=== PATIENT | female | born 1930 | race Caucasian/White ===

== ENCOUNTER → 2017-05-22 | Outpatient (CLI) | payer MEDICARE, OTHER ==
--- NOTE | 2017-05-22 15:38 | RAD ---
CERVICAL SPINE 5V AP, bilateral oblique, lateral, odontoid Clinical Indication: RIGHT SIDE NECK PAIN Comparison: None. Findings: The cervical spine is visualized to level of C7. The normal cervical lordosis is maintained. No listhesis. The neural foramen are grossly patent. Vertebral body heights are maintained. No evidence of acute fracture. Moderate multilevel degenerative changes of the visualized spine. Atherosclerotic and tortuous thoracic aorta. IMPRESSION: 1. No acute fracture or malalignment. 2. Moderate multilevel degenerative changes of the visualized spine.
== END | disposition home or self-care (01) ==
LOC: DXRAD 12:51
PROVIDERS: ATTEND Family Medicine
DX: M47.892 Other spondylosis, cervical region (principal); I70.0 Atherosclerosis of aorta
CPT/HCPCS: 72050

== ENCOUNTER 2017-09-11 08:10 | Emergency (ER) | payer MEDICARE, OTHER ==
[~2017-09-11] VITALS: Ht 154.9 cm; Wt 53.5 kg
--- NOTE | 2017-09-11 08:37 | PHYS DOC ---
Past History Past Medical History: Hypertension, Hypothyroid Additional Past Medical Histor: interstitial cystitis Smoking: Non-smoker Alcohol Use: None Drug Use: None Adult General Chief Complaint Chief Complaint: URINARY FREQUENCY [facility] 87-year-old male patient complaining of urinary frequency and dysuria for the last 1 week with lower abdominal discomfort and fullness feeling and generalized weakness. Patient complaining of urinary incontinence and urgency for the last 1 week without back pain or focal neuro deficits. Patient denies fever. Patient complaining of chronic diarrhea that getting worse for the last couple days. Review of Systems Review of Systems Constitutional: Denies fever or chills [] Eyes: Denies change in visual acuity, redness, or eye pain [] HENT: Denies nasal congestion or sore throat [] Respiratory: Denies cough or shortness of breath [] Cardiovascular: No additional information not addressed in HPI [] GI: Reports abdominal pain, nausea, diarrhea, denies vomiting, bloody stools [] : Reports dysuria and frequency and incontinence] Musculoskeletal: Denies back pain or joint pain [] Integument: Denies rash or skin lesions [] Neurologic: Denies headache, focal weakness or sensory changes [] Endocrine: Denies polyuria or polydipsia [] All other systems were reviewed and found to be within normal limits, except as documented in this note. Physical Exam Physical Exam Constitutional: Well developed, well nourished, mild distress, non-toxic appearance. [] HENT: Normocephalic, atraumatic, bilateral external ears normal, oropharynx dry , no oral exudates, nose normal. [] Eyes: PERRLA, EOMI, conjunctiva normal, no discharge. [] Neck: Normal range of motion, no tenderness, supple, no stridor. [] Cardiovascular:Heart rate regular rhythm, no murmur [] Lungs & Thorax: Bilateral breath sounds clear to auscultation [] Abdomen: Bowel sounds normal, soft, no tenderness, suprapubic guarding, no masses, no pulsatile masses. [] Skin: Warm, dry, no erythema, no rash. [] Back: No tenderness, no CVA tenderness. [] Extremities: No tenderness, no cyanosis, no clubbing, ROM intact, no edema. [] Neurologic: Alert and oriented X 3, normal motor function, normal sensory function, no focal deficits noted. [] Psychologic: Affect normal, judgement normal, mood normal. [] EKG EKG [] Radiology/Procedures Radiology/Procedures [] Course & Med Decision Making Course & Med Decision Making Pertinent Labs studies reviewed. (See chart for details) Evaluation of patient in ER showed 87-year-old female patient with complaining of urinary frequency and dysuria and incontinence for the last 1 week. She was afebrile with mild suprapubic guarding. Labs showed UTI and mild dehydration. Rocephin and normal saline was given. Plan to discharge patient home with diagnosis of UTI and prescription of Cipro. Dragon Disclaimer Dragon Disclaimer This electronic medical record was generated, in whole or in part, using a voice recognition dictation system. Departure Departure: Impression: Primary Impression: Urinary tract infection Additional Impressions: Dehydration Chronic interstitial cystitis Urinary incontinence Stress incontinence in female Disposition: HOME, SELF-CARE (At 0945) Condition: IMPROVED Referrals: YANA HENDERSON MD (PCP) Patient Instructions: Dehydration, Adult, Urinary Tract Infection Additional Instructions: Drink plenty of liquids Follow-up with your doctor in 2 or 3 days Return to ER if not getting better Scripts Phenazopyridine Hcl (PYRIDIUM) 100 Mg Tablet 100 MG PO BID for 5 Days, #10 TAB Prov: LILIA HAZEL MD 09/11/17 Ciprofloxacin Hcl (CIPRO) 250 Mg Tablet 1 TAB PO BID, #14 TAB Prov: LILIA HAZEL MD 09/11/17 Problem Qualifiers LILIA HAZEL MD Sep 11, 2017 08:37
[2017-09-11 08:47] LABS: BACTERIA,URINE MOD /HPF (0-FEW); BILIRUBIN,URINE NEG (NEG); CLARITY,URINE CLOUDY; COLOR,URINE YELLOW; GLUCOSE,URINE NEG (NEG); NITRITE,URINE POS (NEG); SQUAMOUS EPITHELIAL CELL,UR OCC /LPF; UROBILINOGEN,URINE 0.2 mg/dL (0.2 mg/dL); WBC,URINE TNTC /HPF (0-4)
[2017-09-11 08:54] LABS: BASO # 0.1 x10^3/uL (0.0-0.2); BASO % 1 % (0-3); EOS # 0.1 x10^3/uL (0.0-0.7); EOS % 2 % (0-3); HEMATOCRIT 42.4 % (36.0-47.0); HEMOGLOBIN 14.2 g/dL (12.0-15.5); LYMPH % 26 % (24-48); MEAN CORPUSCULAR HEMOGLOBIN 31 pg (25-35); MEAN CORPUSCULAR HGB CONC 34 g/dL (31-37); MEAN CORPUSCULAR VOLUME 93 fL (79-100); MONO # 0.5 x10^3/uL (0.0-1.1); MONO % 6 % (0-9); NEUT # 5.3 x10^3uL (1.8-7.7); NEUT % 66 % (31-73); PLATELET COUNT 162 x10^3/uL (140-400); RED BLOOD COUNT 4.56 x10^6/uL (3.50-5.40); RED CELL DISTRIBUTION WIDTH 14.3 % (11.5-14.5)
[2017-09-11 09:07] LABS: ALBUMIN 3.6 g/dL (3.4-5.0); CALCIUM 9.5 mg/dL (8.5-10.1); CREATININE 0.8 mg/dL (0.6-1.0); POTASSIUM 3.7 mmol/L (3.5-5.1); TOTAL BILIRUBIN 0.6 mg/dL (0.2-1.0); TOTAL PROTEIN 7.1 g/dL (6.4-8.2)
[2017-09-11] MEDS ORDERED: IV NORMAL SALINE 500ML 500 ML IV ONE (09:15)
[2017-09-11] MEDS ORDERED: PHEN100T82 PO (09:27)
[2017-09-11] MEDS ORDERED: CIPR250T30 PO (09:27)
[2017-09-11] MEDS ORDERED: cefTRIAXone IV Push 1 GM VIAL. IVP ONE (09:40)
[2017-09-11 09:54] VITALS: BP 154/62
== END 2017-09-11 10:01 | disposition home or self-care (01) ==
LOC: ER 08:10
DX: N30.10 Interstitial cystitis (chronic) without hematuria (principal); E86.0 Dehydration; N39.3 Stress incontinence (female) (male); E03.9 Hypothyroidism, unspecified; I10 Essential (primary) hypertension
CPT/HCPCS: 36415; 80053; 81001; 83605; 85025; 87086; 96361; 96374; J0696; J7040; 99284-25

== ENCOUNTER 2018-06-02 16:24 | Emergency (ER) | payer MEDICARE, OTHER ==
[~2018-06-02] VITALS: Ht 157.5 cm; Wt 59.0 kg
[~2018-06-02 16:24] MED LIST: CIPR250T30 PO; PHEN100T82 PO
--- NOTE | 2018-06-02 16:55 | EKG ---
[address] [address] Test Date: 2018-06-02 Test Time: 16:45:56 Pat Name: GALILEA LEE Department: Room: Gender: F Fryer Operator: : 1930 Requested By: LILIA HAZEL Order Number: [id number] Reading MD: Mio Sung MD Measurements Intervals [place] Rate: 51 P: 90 ME: 170 QRS: 42 QRSD: 76 T: -88 QT: 494 QTc: 457 Interpretive Statements SINUS RHYTHM LVH WITH REPOLARIZATION ABNORMALITY Electronically Signed On 06-03-2018 10:56:44 CDT by Mio Sung MD
--- NOTE | 2018-06-02 17:20 | RAD ---
History: Fall previous week. Sternal pain. Comparison: None. Findings: 3 total images of the sternum. Osseous structures are significantly demineralized. On the lateral view, there is irregularity of the anterior cortex of the upper sternum, compatible with nondisplaced fracture, presumably acute given history. Aortic atherosclerosis is seen. Impression: Nondisplaced sternal fracture. Electronically signed by: Eduardo Reyes MD (06/02/2018 5:17 PM) [facility]
[2018-06-02 17:23] VITALS: BP 136/57
[2018-06-02] MEDS ORDERED: TRAM-48 PO (17:36)
--- NOTE | 2018-06-02 17:36 | PHYS DOC ---
Past History Past Medical History: GERD, Hypertension, Hypothyroid Additional Past Medical Histor: interstitial cystitis Past Surgical History: Cancer Surgery, Hysterectomy, Other Smoking: Non-smoker Alcohol Use: None Drug Use: None Adult General Chief Complaint Chief Complaint: MECHANICAL FALL HPI HPI Patient is a 88 year old female who presents with complaining of pain in his sternal area after she had a fall forward on mud one week ago. Patient complaining of severe substernal pain intermittently for 1 week that usually happen with movement and taking deep breaths and last for minutes to hours. Patient denies loss of consciousness, shortness of breath, cough, focal neuro deficit, head injury, fever and chills. She called her physician who recommended to have x-ray. Review of Systems Review of Systems Constitutional: Denies fever or chills [] Eyes: Denies change in visual acuity, redness, or eye pain [] HENT: Denies nasal congestion or sore throat [] Respiratory: Denies cough or shortness of breath [] Cardiovascular: No additional information not addressed in HPI [] GI: Denies abdominal pain, nausea, vomiting, bloody stools or diarrhea [] : Denies dysuria or hematuria [] Musculoskeletal: Denies back pain or joint pain [] Integument: Denies rash or skin lesions [] Neurologic: Denies headache, focal weakness or sensory changes [] Endocrine: Denies polyuria or polydipsia [] All other systems were reviewed and found to be within normal limits, except as documented in this note. Allergies Allergies Allergies Coded Allergies Type Severity Reaction Last Updated Verified Penicillins Allergy Unknown 09/11/17 Yes acetaminophen Allergy Unknown 09/11/17 Yes adhesive tape Allergy Unknown 09/11/17 Yes aspirin Allergy Unknown 09/11/17 Yes blue dye Allergy Unknown 09/11/17 Yes cimetidine Allergy Unknown 09/11/17 Yes codeine Allergy Unknown 09/11/17 Yes diclofenac Allergy Unknown 09/11/17 Yes ibuprofen Allergy Unknown 09/11/17 Yes milk Allergy Unknown 09/11/17 Yes morphine Allergy Unknown 09/11/17 Yes omeprazole Allergy Unknown 09/11/17 Yes oxycodone Allergy Unknown 09/11/17 Yes procaine Allergy Unknown 09/11/17 Yes propoxyphene Allergy Unknown 09/11/17 Yes Uncoded Allergies Type Severity Reaction Last Updated Verified METAL Allergy Unknown 09/11/17 PREZOID Allergy Unknown 09/11/17 STEROIDS Allergy Unknown 09/11/17 SURGICAL FARAZ Allergy Unknown 09/11/17 Physical Exam Physical Exam Constitutional: Well developed, well nourished, mild distress, non-toxic appearance. [] HENT: Normocephalic, atraumatic Eyes: PERRLA, EOMI, conjunctiva normal, no discharge. [] Neck: Normal range of motion, no tenderness, supple, no stridor. [] Cardiovascular:Heart rate regular rhythm, no murmur [] Lungs & Thorax: Bilateral breath sounds clear to auscultation, tenderness in left side of chest and sternal area [] Abdomen: Bowel sounds normal, soft, no tenderness, no masses, no pulsatile masses. [] Skin: Warm, dry, no erythema, no rash. [] Back: No tenderness, no CVA tenderness. [] Extremities: No tenderness, no cyanosis, no clubbing, ROM intact, no edema. [] Neurologic: Alert and oriented X 3, normal motor function, normal sensory function, no focal deficits noted. [] Psychologic: Affect normal, judgement normal, mood normal. [] Current Patient Data Vital Signs Vital Signs Date Time Temp Pulse Resp B/P (MAP) Pulse Ox O2 Delivery O2 Flow Rate FiO2 06/02/18 16:24 97.5 57 18 93 Room Air EKG EKG EKG interpreted by me. EKG at 1645 showed sinus bradycardia at rate of 51, LDH with repolarization abnormality, no acute ST and T-wave abnormalities Radiology/Procedures Radiology/Procedures [address] [address] IMAGING REPORT Signed PATIENT: GALILEA LEE ACCOUNT: [id number] : 1930 LOCATION: ER AGE: 88 SEX: F EXAM STATUS: REG ER ORD. PHYSICIAN: LILIA HAZEL MD REASON: fall PROCEDURE: STERNUM 2+V History: Fall previous week. Sternal pain. Comparison: None. Findings: 3 total images of the sternum. Osseous structures are significantly demineralized. On the lateral view, there is irregularity of the anterior cortex of the upper sternum, compatible with nondisplaced fracture, presumably acute given history. Aortic atherosclerosis is seen. Impression: Nondisplaced sternal fracture. Electronically signed by: Eduardo Watson MD (06/02/2018 5:17 PM) [facility] DICTATED AND SIGNED BY: EDUARDO WATSON MD DATE: 06/02/181715 CC: YANA HENDERSON MD; LILIA HAZEL MD ~ Course & Med Decision Making Course & Med Decision Making Pertinent Imaging studies reviewed. (See chart for details) Evaluation of patient in ER showed 88-year-old female patient with a fall one week ago and complains of pain in his sternal area. Patient had tenderness in the sternal area and x-ray showed nondisplaced sternal fracture. Patient treated with Tylenol in ER and prescription for Ultram was given. Dragon Disclaimer Dragon Disclaimer This electronic medical record was generated, in whole or in part, using a voice recognition dictation system. Departure Departure: Impression: Primary Impression: Fracture of sternum, closed Additional Impression: Fall at home Disposition: HOME, SELF-CARE (@5471) Condition: STABLE Referrals: YANA HENDERSON MD (PCP) Patient Instructions: Sternal Fracture Additional Instructions: Follow-up with [facility] orthopedic physician Dr. Evans in 2 or 3 days, call to make an appointment Apply ice to affected area Follow-up with your primary care physician in 3-5 days Return to ER if not getting better Scripts Tramadol Hcl (ULTRAM) 50 Mg Tablet 50 MG PO PRN Q6HRS PRN for PAIN, #20 TAB Prov: LILIA HAZEL MD 06/02/18 Problem Qualifiers LILIA HAZEL MD Jun 02, 2018 17:36
[2018-06-02] MEDS ORDERED: ACETAMINOPHEN 500 MG TABLET PO ONE (17:45)
== END 2018-06-02 17:45 | disposition home or self-care (01) ==
LOC: ER 16:24
DX: S22.20XA Unspecified fracture of sternum, initial encounter for closed fracture (principal); K21.9 Gastro-esophageal reflux disease without esophagitis; I10 Essential (primary) hypertension; E03.9 Hypothyroidism, unspecified; Z88.0 Allergy status to penicillin; Z88.8 Allergy status to other drugs, medicaments and biological substances; Z88.6 Allergy status to analgesic agent; Z91.041 Radiographic dye allergy status; Z88.5 Allergy status to narcotic agent; Z88.4 Allergy status to anesthetic agent; Z91.011 Allergy to milk products; W19.XXXA Unspecified fall, initial encounter; Y93.89 Activity, other specified; Y92.098 Other place in other non-institutional residence as the place of occurrence of the external cause; Y99.8 Other external cause status
CPT/HCPCS: 71120; 93005; 99284